=== PATIENT | female | born 1945 | race Caucasian/White ===

== ENCOUNTER 2020-05-27 15:25 | Inpatient (IN) ==
[2020-05-27] MEDS ORDERED: Ondansetron 4 MG/2 ML VIAL IVP ONE (16:24)
[2020-05-27] MEDS ORDERED: 0.9 % Sodium Chloride 1,000 ML IVC SCH ×2 (16:30→19:15)
[2020-05-27 16:46] LABS: Basophils % 0.4 %; Eosinophils % 0.4 %; Hematocrit 35.4 % (35.3-44.9); Hemoglobin 11.9 g/dL (11.5-15.4); Immature Granulocytes % 2.3 % (0-4); Lymphocytes # 0.9 K/mcL (0.6-4.6); Lymphocytes % 11.3 %; Mean Corpuscular HGB Conc 33.6 g/dL (31.6-35.5); Mean Corpuscular Hemoglobin 28.6 pg (28.0-33.3); Mean Corpuscular Volume 85.1 fL (83.0-100.0); Mean Platelet Volume 10.1 fL (9.4-12.4); Monocytes # 0.7 K/mcL (0.0-1.3); Monocytes % 8.3 %; Platelet Count 268 K/mcL (140-400); Red Blood Count 4.16 M/mcL (3.82-4.97); Red Cell Distribution Width 13.1 % (11.5-14.5); Segmented Neutrophils % 77.3 %; White Blood Count 7.8 K/mcL (4.3-11.1)
[2020-05-27 16:55] LABS: INR 1.1; Prothrombin Time 12.3 Seconds (9.4-12.1)
[2020-05-27 16:57] LABS: Activated Partial Thrombo Time 22.9 Seconds (26.0-36.0)
[2020-05-27 17:06] LABS: Alanine Aminotransferase 25 Units/L (7-52); Albumin 3.2 g/dL (3.5-5.7); Alkaline Phosphatase 56 Units/L (34-104); Aspartate Amino Transferase 34 Units/L (13-39); BUN/Creatinine Ratio 29 (6-26); Bilirubin,Direct 0.2 mg/dL (0.0-0.2); Bilirubin,Indirect 0.5 mg/dL (0.0-1.0); Bilirubin,Total 0.7 mg/dL (0.3-1.0); Blood Urea Nitrogen 32 mg/dL (8-23); C-Reactive Protein 149 mg/L (Less than 10); Calcium 8.2 mg/dL (8.6-10.3); Carbon Dioxide 23 mEq/L (23-29); Chloride 91 mEq/L (98-107); Globulin 3.3 g/dL (2.4-3.5); Glucose 107 mg/dL (70-105); Lactate Dehydrogenase 298 Units/L (140-271); Magnesium 2.3 mg/dL (1.6-2.6); Osmolality,Calculated 267 (280-300); Phosphorous 2.3 mg/dL (2.7-4.5); Potassium 4.1 mEq/L (3.5-5.1); Sodium 125 mEq/L (136-145); Total Protein 6.5 g/dL (6.4-8.9); Troponin I < 0.03 ng/mL (< 0.04); eGFR For African Americans 57 (> 60); eGFR For Non-African Americans 47 (> 60)
[2020-05-27 17:22] LABS: Ferritin 1144 ng/mL (10-120)
[2020-05-27 17:44] LABS: Bilirubin,Urine Negative (Negative); Blood,Urine Negative (Negative); Clarity,Urine Clear (Clear); Color,Urine Yellow (Yellow); Glucose,Urine (UA) Normal (Normal); Ketones,Urine Negative (Negative); Leukocyte Esterase,Urine Trace (Negative); Nitrite,Urine Negative (Negative); Protein,Urine Negative (Neg-Trace); Urobilinogen,Urine Normal (Normal)
[2020-05-27 17:57] LABS: WBC,Urine 0-3 per hpf (0-3)
[2020-05-27] MEDS ORDERED: Naloxone 0.4 MG/ML INJ IVP PRN (19:10)
[2020-05-27] MEDS ORDERED: Acetaminophen 325 MG TABLET PO PRN (19:10)
[2020-05-27] MEDS ORDERED: Ondansetron 4 MG/2 ML VIAL IVP PRN (19:10)
[2020-05-27] MEDS ORDERED: Dexamethasone 4 MG/ML VIAL IVP ONE (19:13)
[2020-05-27] MEDS ORDERED: cefTRIAXone 1,000 MG in Water for inj. (sterile) 10 ML IVP SCH (20:00)
[2020-05-27] MEDS: Cholecalciferol (D-3) 1,000 UNIT (25MCG) TABLET PO SCH (20:28)
[2020-05-27] MEDS: Zinc Sulfate 220 MG CAPSULE PO SCH (20:28)
[2020-05-27] MEDS: Azithromycin 500 MG in 0.9 % Sodium Chloride 250 ML IVPB SCH (20:29)
[2020-05-28 05:11] LABS: Basophils % 0.3 %; Hematocrit 33.7 % (35.3-44.9); Hemoglobin 11.4 g/dL (11.5-15.4); Immature Granulocytes % 4.2 % (0-4); Lymphocytes # 0.6 K/mcL (0.6-4.6); Mean Corpuscular HGB Conc 33.8 g/dL (31.6-35.5); Mean Corpuscular Hemoglobin 28.4 pg (28.0-33.3); Mean Corpuscular Volume 83.8 fL (83.0-100.0); Mean Platelet Volume 9.4 fL (9.4-12.4); Monocytes # 0.2 K/mcL (0.0-1.3); Monocytes % 4.2 %; Platelet Count 268 K/mcL (140-400); Red Blood Count 4.02 M/mcL (3.82-4.97); Red Cell Distribution Width 12.9 % (11.5-14.5); Segmented Neutrophils % 77.3 %; White Blood Count 3.9 K/mcL (4.3-11.1)
[2020-05-28 05:32] LABS: Alanine Aminotransferase 22 Units/L (7-52); Albumin/Globulin Ratio 0.9 (1.1-2.2); Alkaline Phosphatase 52 Units/L (34-104); Aspartate Amino Transferase 27 Units/L (13-39); BUN/Creatinine Ratio 28 (6-26); Bilirubin,Total 0.4 mg/dL (0.3-1.0); Blood Urea Nitrogen 27 mg/dL (8-23); C-Reactive Protein 142 mg/L (Less than 10); Calcium 8.1 mg/dL (8.6-10.3); Carbon Dioxide 22 mEq/L (23-29); Chloride 100 mEq/L (98-107); Globulin 3.2 g/dL (2.4-3.5); Glucose 146 mg/dL (70-105); Lactate Dehydrogenase 251 Units/L (140-271); Magnesium 2.3 mg/dL (1.6-2.6); Osmolality,Calculated 282 (280-300); Potassium 4.9 mEq/L (3.5-5.1); Sodium 132 mEq/L (136-145); Total Protein 6.2 g/dL (6.4-8.9); eGFR For African Americans > 60 (> 60); eGFR For Non-African Americans 57 (> 60)
[2020-05-28 05:47] LABS: Ferritin 991 ng/mL (10-120)
[2020-05-28] MEDS: *HR* Heparin 5,000 UNIT/ML VIAL SQ SCH ×2 (07:59→08:00)
[2020-05-28] MEDS: Zinc Sulfate 220 MG CAPSULE PO SCH (07:59)
[2020-05-28] MEDS: Cholecalciferol (D-3) 1,000 UNIT (25MCG) TABLET PO SCH (07:59)
[2020-05-28] MEDS: Aspirin 81 MG TAB.CHEW PO SCH (07:59)
[2020-05-28] MEDS: Dexamethasone 4 MG/ML VIAL IVP SCH (08:00)
[2020-05-28] MEDS: Valsartan 160 MG TABLET PO SCH (10:17)
[2020-05-28] MEDS: Azithromycin 500 MG in 0.9 % Sodium Chloride 250 ML IVPB SCH (20:22)
[2020-05-28] MEDS: cefTRIAXone 2,000 MG in Water for inj. (sterile) 20 ML IVP SCH (20:23)
[2020-05-29 00:52] LABS: Hematocrit 35.5 % (35.3-44.9); Hemoglobin 11.4 g/dL (11.5-15.4); Mean Corpuscular HGB Conc 32.1 g/dL (31.6-35.5); Mean Corpuscular Hemoglobin 28.1 pg (28.0-33.3); Mean Corpuscular Volume 87.4 fL (83.0-100.0); Mean Platelet Volume 9.7 fL (9.4-12.4); Platelet Count 289 K/mcL (140-400); Red Blood Count 4.06 M/mcL (3.82-4.97)
[2020-05-29 00:55] LABS: White Blood Count 9.4 K/mcL (4.3-11.1)
[2020-05-29 01:09] LABS: Calcium 8.3 mg/dL (8.6-10.3); Potassium 4.4 mEq/L (3.5-5.1)
[2020-05-29] MEDS: *HR* Enoxaparin 40 MG/0.4 ML SYRINGE SQ SCH (05:18)
[2020-05-29] MEDS ORDERED: hydroCHLOROthiazide 25 MG TABLET PO SCH (09:00)
[2020-05-29] MEDS: Dexamethasone 4 MG/ML VIAL IVP SCH (10:12)
[2020-05-29] MEDS: Zinc Sulfate 220 MG CAPSULE PO SCH (10:14)
[2020-05-29] MEDS: Cholecalciferol (D-3) 1,000 UNIT (25MCG) TABLET PO SCH (10:14)
[2020-05-29] MEDS: Furosemide 20 MG/2 ML VIAL IVP SCH (10:14)
[2020-05-29] MEDS: Valsartan 160 MG TABLET PO SCH (10:14)
[2020-05-29] MEDS: Aspirin 81 MG TAB.CHEW PO SCH (10:14)
[2020-05-29] MEDS: Azithromycin 500 MG in 0.9 % Sodium Chloride 250 ML IVPB SCH (20:17)
[2020-05-29] MEDS: cefTRIAXone 2,000 MG in Water for inj. (sterile) 20 ML IVP SCH (20:17)
[2020-05-30] MEDS: *HR* Enoxaparin 40 MG/0.4 ML SYRINGE SQ SCH (05:48)
[2020-05-30 08:00] LABS: Hematocrit 38.5 % (35.3-44.9); Hemoglobin 12.3 g/dL (11.5-15.4); Mean Corpuscular HGB Conc 31.9 g/dL (31.6-35.5); Mean Corpuscular Hemoglobin 27.8 pg (28.0-33.3); Mean Corpuscular Volume 86.9 fL (83.0-100.0); Mean Platelet Volume 9.5 fL (9.4-12.4); Platelet Count 407 K/mcL (140-400); Red Blood Count 4.43 M/mcL (3.82-4.97); Red Cell Distribution Width 12.9 % (11.5-14.5)
[2020-05-30 08:19] LABS: Calcium 8.9 mg/dL (8.6-10.3)
[2020-05-30] MEDS: Valsartan 160 MG TABLET PO SCH (09:07)
[2020-05-30] MEDS: Cholecalciferol (D-3) 1,000 UNIT (25MCG) TABLET PO SCH (09:07)
[2020-05-30] MEDS: Aspirin 81 MG TAB.CHEW PO SCH (09:07)
[2020-05-30] MEDS: Zinc Sulfate 220 MG CAPSULE PO SCH (09:07)
[2020-05-30] MEDS: Furosemide 20 MG TABLET PO SCH (09:27)
[2020-05-30] MEDS: Cefdinir 300 MG CAPSULE PO SCH ×2 (09:28→20:15)
[2020-05-30] MEDS: dexAMETHasone 4 MG TABLET PO SCH (09:28)
[2020-05-30] MEDS: Azithromycin 250 MG TABLET PO SCH (09:28)
[2020-05-31 05:27] LABS: Hemoglobin 12.5 g/dL (11.5-15.4); Mean Corpuscular HGB Conc 32.1 g/dL (31.6-35.5); Mean Corpuscular Hemoglobin 27.8 pg (28.0-33.3); Mean Corpuscular Volume 86.7 fL (83.0-100.0); Mean Platelet Volume 9.3 fL (9.4-12.4); Platelet Count 411 K/mcL (140-400); Red Cell Distribution Width 12.8 % (11.5-14.5); White Blood Count 11.2 K/mcL (4.3-11.1)
[2020-05-31] MEDS: *HR* Enoxaparin 40 MG/0.4 ML SYRINGE SQ SCH (05:36)
[2020-05-31 07:10] LABS: Potassium 4.1 mEq/L (3.5-5.1)
[2020-05-31] MEDS: Furosemide 20 MG/2 ML VIAL IVP SCH (07:13)
[2020-05-31] MEDS: Dexamethasone 4 MG/ML VIAL IVP SCH (07:13)
[2020-05-31] MEDS: Aspirin 81 MG TAB.CHEW PO SCH (07:38)
[2020-05-31] MEDS: Furosemide 20 MG TABLET PO SCH (07:38)
[2020-05-31] MEDS: Azithromycin 250 MG TABLET PO SCH (07:38)
[2020-05-31] MEDS: Cholecalciferol (D-3) 1,000 UNIT (25MCG) TABLET PO SCH (07:38)
[2020-05-31] MEDS: Cefdinir 300 MG CAPSULE PO SCH (07:38)
[2020-05-31] MEDS: Valsartan 160 MG TABLET PO SCH (07:38)
[2020-05-31] MEDS: Zinc Sulfate 220 MG CAPSULE PO SCH (07:38)
[2020-05-31] MEDS: dexAMETHasone 4 MG TABLET PO SCH (07:38)
[2020-05-31 15:22] VITALS: BP 124/84
== END 2020-05-31 16:15 | disposition home health service (06) ==
LOC: EMEROOARM 15:25 → 2NENU 15:25
PROVIDERS: ADMIT Student in an Organized Health Care Education/Training Program; ATTEND Student in an Organized Health Care Education/Training Program